=== PATIENT | female | born 1990 | race Caucasian/White ===

== ENCOUNTER 2016-12-05 11:57 | Inpatient (IN) ==
[2016-12-05] MEDS ORDERED: SODIUM CHLORIDE 0.9% 1,000 ML IV STA (12:11)
[2016-12-05] MEDS ORDERED: ZIPRASIDONE 20 MG/1 ML VIAL IM ONE ×2 (12:16→13:12)
[2016-12-05] MEDS ORDERED: ZIPRASIDONE 20 MG/1 ML VIAL IM STA ×2 (12:16→13:13)
[2016-12-05 12:27] LABS: Basophils % 0.3 % (0.0-0.8); Eosinophils % 0.3 % (0.00-10.9); Hemoglobin 13.5 GM/DL (12.0-16.0); Immature Granulocytes % 0.8 %; Immature Granulocytes Absolute 0.07 #; Lymphocytes # 2.6 10*3/uL (1.4-4.0); Lymphocytes % 27.7 % (21.3-54.2); Mean Corpuscular HGB Conc 33.8 GM/DL (32-36); Mean Corpuscular Hemoglobin 27 PG (27-34); Mean Corpuscular Volume 81.1 FL (87-102); Mean Platelet Volume 10.5 FL (9.6-12.0); Monocytes # 0.6 10*3/uL (0.11-0.8); Monocytes % 6.9 % (1.7-12.7); Neutrophils # 5.9 10*3/uL (1.4-7.4); Platelet Count 364 T/CUMM (130-400); Red Blood Count 4.93 MC/CUMM (3.8-5.5); Red Cell Distribution Width 13.2 % (9.3-17.3); White Blood Count 9.2 T/CUMM (4-12)
[2016-12-05 12:51] LABS: Barbiturates Screen,Urine Negative (Negative); Benzodiazepines Screen,Urine Negative (Negative); Cannabinoid Screen,Urine Positive (Negative); Opiate Screen,Urine Negative (Negative); Phencyclidine Screen,Urine Negative (Negative)
[2016-12-05 12:54] LABS: Alanine Aminotransferase 21 U/L (13-56); Albumin 4.3 G/DL (3.4-5.0); Alkaline Phosphatase 90 U/L (45-117); Aspartate Amino Transferase 26 U/L (0-37); Blood Urea Nitrogen 19 MG/DL (7-18); Calcium 9.7 MG/DL (8.5-10.1); Glucose 102 MG/DL (74-106); Osmolality,Calculated 271.1 MOS/KG (273-304); Potassium 3.4 MMOL/L (3.5-5.1); Sodium 135 MMOL/L (136-145); Total Protein 8.8 G/DL (6.4-8.3)
--- NOTE | 2016-12-05 12:54 | Emergency Department Note ---
Pradeep Lee Brooke, am scribing for, and in the presence of, Armin Malave MD 12:19 . Frieda Lee James D, MD, personally performed the services described in this documentation, ascribed by Mona Fernández in my presence, and it is both accurate and complete 253 . Arrival - Arrival Chief Complaint: Psychiatric ED Nursing Triage Note: C/O BEING FOUND ON THE GROUND, SOMEONE CALLED [employer] AND SHE VERBALIZED TO THE [employer] THAT SHE WANTED TO KILL HERSELF, PATIENT STATES SHE HAS BEEN USING COCAINE TODAY , STATES SHE SNORTED , PATIENT VERBALIZED THAT SHE IS GOING TO [facility] IF SHE GETS MAD, " I AM HOMICIDIAL , I AM SUICIDIAL " , PATIENT STATES SHE IS SCHIZOPHRENIC BUT HAS NOT BEEN TAKING HER MEDICATIONS Mode of Arrival: Stretcher Limitations: Altered Mental Status Source: Patient, EMS, Police, RN Notes Reviewed Time Seen by Provider: 12/05/16 12:11 - History of Present Illness HPI Narrative: Patient is a 26 year old female who was brought into the ED by EMS after being found on the ground. EMS reports that [employer] was called and Patient stated that she wanted to kill herself. Patient is a poor historian. She says she came to the ED because "I was scared I was going to of starvation." Patient says she has been doing cocaine and possibly meth. She denies any alcohol use today or yesterday. Patient has a PMHx of past suicide attempt, bipolar disorder, substance abuse, and schizophrenia. She says she has not been taking her schizophrenia medication. Date of Last Menstrual Period: NOW Allergies/Adverse Reactions: Allergies Allergy/AdvReac Type Severity Reaction Status Date / Time haloperidol [From Haldol] AdvReac Intermediate Joint Pain Verified 08/02/16 12: 48 Home Medications: Home Medications Medication Instructions Recorded Confirmed Type Ferrous Sulfate Tab [Feosol 325 mg PO TID #90 tablet 08/02/16 Rx Original Tab] Fluoxetine HCl [Prozac] 40 mg PO DAILY 08/02/16 08/02/16 History Promethazine Tab [Phenergan Tab] 12.5 mg PO Q6H PRN #14 tablet 08/02/16 Rx Ziprasidone Cap [Geodon Cap] 20 mg PO BID 08/02/16 08/02/16 History traZODone [Desyrel] 50 mg PO BEDTIME 08/02/16 08/02/16 History Review of System - Review of System ROS unobtainable: due to mental status - Review of System Constitutional: Absent: fever Respiratory: Absent: respiratory distress Psychiatric: Present: suicidal thoughts Medical,Surgical,& Family Hx - Medical History Psychological: History of: Bipolar Disorder, Previous Suicide Attempt, Psychiatric/Substance Abuse Tx, Schizophrenia - Social History Smoking Status: Smoker, status unknown Frequency of Alcohol Use: Unknown Type of Drug Use: Cocaine, Marijuana, Methamphetamine, Intravenous Drug Use Exam Vital Signs: Vital Signs Temperature 97.7 F 12/05/16 12:36 Pulse Rate 84 12/05/16 12:36 Respiratory Rate 22 12/05/16 12:36 Blood Pressure 121/77 12/05/16 12:36 O2 Sat by Pulse Oximetry 100 12/05/16 12:35 GENERAL: This is a disheveled and agitated white female, smells of stale urine, in no apparent distress. VITAL SIGNS: Reviewed HEENT: Head is atraumatic and normocephalic. Pupils are equal round react to light. Extraocular movements are intact. Oropharynx is benign with moist mucous membranes. NECK: Neck is soft and supple without tenderness. There are no masses. There is no lymphadenopathy. LUNGS: Lungs are clear to auscultation. Chest rises symmetrically. There is no chest wall tenderness. CV: Heart is regular rate and rhythm without murmurs rubs or gallops. ABDOMEN: Abdomen is soft, nontender to palpation. There are no abdominal abnormal masses palpated. There is no organomegaly. Bowel sounds are present and active. SKIN: Skin is warm and dry. No rash. EXTREMITIES: Patient has full range of motion without tenderness. There is no pedal edema. NEUROLOGIC: Awake alert and oriented 4. Cranial nerves II through XII are grossly intact. Motor is 5 over 5 in all extremities bilaterally. Deep tendon reflexes are 2+ and bilaterally equal. Psych: Agitated, insight is poor. Positive homicidal ideations, positive suicidal ideations. Course Course Narrative: [facility] psychiatric evaluation requested. [facility] There are no beds available at [facility] for psychiatric patients at this time. - Consultations Consultation #1: Discussed with hospitalist. Patient will be admitted to their service. Time: 13:35 Results - Labs CBC & BMP: 12/05/16 12:12 05/29/17 12:12 Lab Results: I have reviewed the patients labs Labs: Laboratory Tests 12/05/16 12/05/16 12:12 12:20 Urine Opiates Screen Negative Ur Barbiturates Screen Negative Ur Phencyclidine Scrn Negative U Amphetamine/Methamph Positive H U Benzodiazepines Scrn Negative U Cocaine Metab Screen Positive H U Cannabinoids Screen Positive H Serum Alcohol < 15 L Disposition Clinical Impression: Schizophrenia, Noncompliance with medication regimen, Cocaine abuse, Agitation , Methamphetamine abuse, Marijuana abuse, Homicidal ideation, Suicidal ideations Case discussed with: patient Disposition: Still a Patient Condition: Guarded Time of Disposition: 13:35
--- NOTE | 2016-12-05 14:06 | Hospitalist History & Physical ---
Assessment and Plan (1) Polysubstance abuse Problem details: urine positive for benzos and marijuana Status: Chronic Assessment and plan: At the time of admission, the patient was positive for cannibus, amphetamines, and cocaine. These factors certainly complicate her underlying psychiatric illness. I am not sure if there she has ingested any other unknown substances; however we will monitor in ICU with 1:1 observation. Current Visit: No (2) Suicidal ideations Status: Acute Assessment and plan: Both suicidal and homicidal ideation verbalized at the time of admission. She is unable to be transferred to inpatient psych at this time. We will place on suicide observation in critical care. We will follow up with case management/ social secretary in the AM regarding placement. Current Visit: Yes History of Present Illness Chief complaint: suicidal/homicidal ideation History of present illness: This is very poor and unfortunate 26 year old female patient that was brought to the ED at [facility] by [place] [employer] for evaluation. Apparently, she was found sitting on the side of the road. The police stopped to check on her and at that time voiced intent to commit suicide. she was brought to the ED further evaluation. At the time of presentation, the patient was extremely agitated, disoriented, and combative. When attempting to obtain a medical history; the patient reports a history of schizophrenia; however she reports medication non-compliance. In addition, she reports a past suicide attempt, bipolar disease, and polysubstance abuse. Labs were obtained which revealed mild hypokalemia with a potassium of 3.4 and mild hyponatremia with a sodium of 135. Urine drug screen was performed with positive findings of cocaine, methamphetamines/amphetamines, and cannibus. During the ED encounter, several inpatient psychiatric units were contacted; in which no availability was noted. After brief discussion with both and Dr. Jackson, the patient will be admitted to the hospitalist service for continuation of care. Home Medications Medication Instructions Recorded Confirmed Type Ferrous Sulfate Tab [Feosol 325 mg PO TID #90 tablet 08/02/16 Rx Original Tab] Fluoxetine HCl [Prozac] 40 mg PO DAILY 08/02/16 08/02/16 History Promethazine Tab [Phenergan Tab] 12.5 mg PO Q6H PRN #14 tablet 08/02/16 Rx Ziprasidone Cap [Geodon Cap] 20 mg PO BID 08/02/16 08/02/16 History traZODone [Desyrel] 50 mg PO BEDTIME 08/02/16 08/02/16 History Allergies Allergy/AdvReac Type Severity Reaction Status Date / Time haloperidol [From Haldol] AdvReac Intermediate Joint Pain Verified 08/02/16 12: 48 Medical,Surgical,& Family Hx - Medical History Psychological: History of: Bipolar Disorder, Previous Suicide Attempt, Psychiatric/Substance Abuse Tx, Schizophrenia - Social History Smoking Status: Smoker, status unknown Frequency of Alcohol Use: Unknown Type of Drug Use: Cocaine, Marijuana, Methamphetamine, Intravenous Drug Use ROS unobtainable: due to mental status Exam - Constitutional Vitals: Period Temp Pulse Resp BP Sys/Carbajal Pulse Ox Last 24 Hr 97.7 F-98.0 F 74-84 16-22 121-121/77-81 98-100 General appearance: disheveled, other (dirty; unkempt) - Head Head exam: Present: normal inspection, normocephalic, atraumatic - Eye Eye exam: Present: EOMI. Absent: conjunctival injection, nystagmus Pupils: Present: SAMSON, normal accommodation - ENT ENT exam: Present: normal exam, normal external ear exam, normal oropharynx - Neck Neck exam: Present: normal inspection. Absent: lymphadenopathy, meningismus, tenderness, thyromegaly - Respiratory Respiratory exam: Present: clear to auscultation bilaterally - Cardiovascular Cardiovascular exam: Present: regular rate and rhythm - GI/Abdominal GI/Abdominal exam: Present: normal bowel sounds, soft - Extremities Exam Extremities exam: Present: normal inspection, normal capillary refill, full ROM. Absent: edema - Back Exam Back exam: Present: normal inspection - Neurological Exam Neurological exam: Present: alert, altered, other - Psychiatric Psychiatric exam: Present: agitated, anxious, homicidal ideation, suicidal ideation (bizzare and animated) - Skin Skin exam: Present: normal color, warm, dry Results - Labs CBC & BMP: 12/05/16 12:12 12/05/16 12:12 Lab Results: I have reviewed the past 24 hour labs
--- NOTE | 2016-12-05 14:26 | CT Report ---
Referring physician: Armin Malave Exam: CT brain without contrast Date: 12/05/2016 Comparison: 07/31/2016 Reason: Alteration of consciousness Technique: Axial images of the head were obtained without the use of contrast. Total DLP was 1088.90 mGy*cm. Findings: No hydrocephalus or midline shift is present. There is no evidence of an acute infarction, recent intracranial hemorrhage or abnormal mass effect. The osseous structures appear intact. The mastoid air cells and visualized paranasal sinuses are clear. Impression: No acute intracranial abnormality is identified. The CT exam was performed using one or more of the following dose reduction techniques: Automated exposure control and adjustment of the mA and/or kV according to patient size. PROCEDURE INTERPRETED AT [facility] DEPARTMENT OF RADIOLOGY Final Report Signed by: Dr. Stacie Pompa
--- NOTE | 2016-12-05 14:34 | XRay Report ---
Portable chest Date: 12/05/2016 Clinical history: Shortness of breath Comparison: 10/25/2016 Technique: Portable AP sitting chest Findings: The heart is normal in size. The lungs are clear but hyperexpanded. Stable mediastinum and osseous structures. Impression: Hyperexpanded lungs which can be seen with reactive airway disease or viral illness. PROCEDURE INTERPRETED AT [facility] DEPARTMENT OF RADIOLOGY Final Report Signed by: Dr. Stacie Pompa
[2016-12-05] MEDS ORDERED: ENOXAPARIN 40 MG/0.4 ML SYRINGE SUBCUT SCH (15:00)
[2016-12-05] MEDS ORDERED: THIAMINE 200 MG/2 ML VIAL IV SCH (15:00)
[2016-12-05] MEDS ORDERED: MULTIVITAMIN INJ 10 ML in SODIUM CHLORIDE 0.45% 1,000 ML IV SCH (15:00)
[2016-12-05] MEDS ORDERED: DEXT 5% NACL 0.9% KCL 20 MEQ 20 MEQ/1,000 ML BAG IV SCH (15:00)
[2016-12-05] MEDS: LORazepam 2 MG/1 ML VIAL IV PRN ×2 (15:09→23:31)
[2016-12-05] MEDS ORDERED: SODIUM CHLORIDE 0.9% 1,000 ML IV ONE ×2 (15:20→21:39)
[2016-12-05] MEDS ORDERED: DEXTROSE 5% NACL 0.45% 1,000 ML IV SCH (15:30)
[2016-12-05 16:31] LABS: Ammonia 44 UMOL/L (11-32)
[2016-12-05] MEDS: MULTIVITAMIN IV SCH (16:40)
[2016-12-05] MEDS: THIAMINE IV SCH (16:40)
[2016-12-05] MEDS: SODIUM CHLORIDE 0.45% IV SCH (16:40)
[2016-12-05] MEDS: DEXTROSE IV SCH (16:40)
[2016-12-05] MEDS: POTASSIUM CHLORIDE RIDER 10 MEQ in PREMIX 1 EACH IV PRN ×3 (16:41→18:45)
[2016-12-05] MEDS ORDERED: traZODone 50 MG TABLET PO SCH (21:00)
[2016-12-05] MEDS: ZIPRASIDONE 20 MG CAPSULE PO SCH (22:34)
[2016-12-06] MEDS: DEXTROSE IV SCH ×2 (00:50→08:01)
[2016-12-06] MEDS: MULTIVITAMIN IV SCH ×2 (00:50→08:01)
[2016-12-06] MEDS: THIAMINE IV SCH ×2 (00:50→08:01)
[2016-12-06] MEDS: SODIUM CHLORIDE 0.45% IV SCH ×2 (00:50→08:01)
[2016-12-06] MEDS: LORazepam 2 MG/1 ML VIAL IV PRN ×2 (02:33→06:38)
[2016-12-06 05:11] LABS: Basophils # 0.1 10*3/uL (0.0-0.2); Basophils % 0.6 % (0.0-0.8); Eosinophils # 0.1 10*3/uL (0.0-0.87); Hematocrit 35.4 VOL% (35.7-47.0); Hemoglobin 11.6 GM/DL (12.0-16.0); Immature Granulocytes % 0.2 %; Immature Granulocytes Absolute 0.02 #; Lymphocytes % 34.1 % (21.3-54.2); Mean Corpuscular HGB Conc 32.8 GM/DL (32-36); Mean Corpuscular Hemoglobin 27 PG (27-34); Mean Corpuscular Volume 82.1 FL (87-102); Mean Platelet Volume 10.5 FL (9.6-12.0); Monocytes # 0.7 10*3/uL (0.11-0.8); Monocytes % 8.4 % (1.7-12.7); Neutrophils # 4.9 10*3/uL (1.4-7.4); Neutrophils % 55.7 % (38.7-73.9); Platelet Count 286 T/CUMM (130-400); Red Blood Count 4.31 MC/CUMM (3.8-5.5); Red Cell Distribution Width 13.4 % (9.3-17.3); White Blood Count 8.8 T/CUMM (4-12)
[2016-12-06 05:42] LABS: Albumin 3.2 G/DL (3.4-5.0); Bilirubin,Total 0.5 MG/DL (0.2-1.0); Calcium 8.6 MG/DL (8.5-10.1); Free T4 (Free Thyroxine) 1.34 NG/DL (0.76-1.46); Osmolality,Calculated 274.7 MOS/KG (273-304); Potassium 3.9 MMOL/L (3.5-5.1); Thyroid Stimulating Hormone 0.751 uIU/ml (0.358-3.74); Total Protein 6.8 G/DL (6.4-8.3)
[2016-12-06] MEDS: POTASSIUM CHLORIDE RIDER 10 MEQ in PREMIX 1 EACH IV PRN ×2 (05:52→06:58)
[2016-12-06] MEDS: ZIPRASIDONE 20 MG CAPSULE PO SCH (09:17)
--- NOTE | 2016-12-06 09:26 | Hospitalist Progress Note ---
Assessment and Plan - Time spent with patient Time spent with patient: Less than 30 minutes (1) Agitation Status: Acute Assessment and plan: Ms. Ashley is a 26-year-old white female with history of bipolar disorder, schizophrenia, polysubstance abuse and suicidal ideation with multiple frequent hospitalizations for the same reasons. And patient transfer to drug and alcohol abuse center was attempted in the ED but there were no beds for placement. She was admitted by the hospitalist service with dehydration and suicidal and homicidal ideation. Her drug screen was positive for cocaine, methamphetamines/amphetamines, and cannabis. Dr. Moody will see and examined patient and further recommendations to follow. 12/06/2016 patient's labs are relatively normal this morning. She awakens easily but is somewhat disoriented in time. She has some unusual facial tics and she is rambling about how nobody will help her and worried about her children. She had a full tray approximately 30 minutes before my visit but she did not remember eating it. Patient has been noncompliant with her psychiatric medications with frequent polysubstance abuse. batch plant supervisor have been consulted for evaluation by psychiatric facility. Patient has Ativan trazodone and Geodon to help with her outbursts. She is also on a banana bag for withdrawal symptoms. Current Visit: No (2) History of methamphetamine abuse Status: Acute Current Visit: No (3) Depression Status: Chronic Current Visit: No (4) Polysubstance abuse Problem details: urine positive for benzos and marijuana Status: Chronic Current Visit: No (5) Schizophrenia Status: Acute Current Visit: Yes (6) Noncompliance with medication regimen Status: Acute Current Visit: Yes (7) Cocaine abuse Status: Acute Current Visit: Yes (8) Methamphetamine abuse Status: Acute Current Visit: Yes (9) Marijuana abuse Status: Acute Current Visit: Yes (10) Homicidal ideation Status: Acute Current Visit: Yes (11) Suicidal ideations Status: Acute Current Visit: Yes Hospitalist: Subjective Interval history: Patient states she feels okay this morning. She does not admit to having any suicidal or homicidal ideation. She states she just has problems with drugs and alcohol and needs help. She states her family will not help her. She is worried about her 3 young children who are staying with their father. She she states that [facility] does not help her and they should be shut down. She admits to not taking her medicines on her own in approximately 2 years. She had all of her breakfast but does not remember doing it stating that they never fed her this morning. Her sitter in the room states that they brought her a tray and she ate at all. Exam - Constitutional Vitals: Period Temp Pulse Resp BP Sys/Carbajal Pulse Ox Last 24 Hr 97.7 F-98.7 F 60-100 13-24 91-134/47-84 96-100 Exam: 26-year-old white female, no acute distress, alert but somewhat disoriented She has some unusual facial tics Chest clear CV regular rate and rhythm Abdomen soft and nontender Extremities no edema Results - Labs CBC & BMP: 12/06/16 04:22 12/06/16 04:22 Lab Results: I have reviewed the past 24 hour labs
--- NOTE | 2016-12-06 10:35 | Discharge Summary ---
Hospital Course - Hospital Course Hospital Course: Ms Ashley presented with psychosis due to Bipolar disorder. She is suicidal. She has been stable and will be discharged to psych facility today so that she can get help with her mental health issues. She also has substance abuse issues. Diagnosis - Discharge Diagnosis (1) Polysubstance abuse Status: Chronic (2) Schizophrenia Status: Acute (3) Noncompliance with medication regimen Status: Acute (4) Suicidal ideations Status: Acute Discharge Plan - Discharge Data Disposition: Disch/Xfer to Psych Hos Condition at Discharge: Stable Discharge Diet: regular diet Activity: resume usual activities as tolerated - Discharge Medications New Pedi Multivit 22/Vit D3/Vit K [Mvw Complete Formul D3000 Chew] 1 each PO DAILY #60 tab.chew Continue Ziprasidone Cap [Geodon Cap] 20 mg PO BID Fluoxetine HCl [Prozac] 40 mg PO DAILY Ferrous Sulfate Tab [Feosol Original Tab] 325 mg PO TID #90 tablet Promethazine Tab [Phenergan Tab] 12.5 mg PO Q6H PRN #14 tablet PRN Reason: Nausea/Vomiting traZODone [Desyrel] 50 mg PO BEDTIME - Follow Up or Referral - Forms/Instructions Exam - Constitutional Vitals: Period Temp Pulse Resp BP Sys/Carbajal Pulse Ox Last 24 Hr 97.7 F-98.7 F 60-100 13-24 91-134/47-84 96-100 General appearance: normal weight, no acute distress - Head Head exam: Present: normocephalic, atraumatic - Eye Eye exam: Present: EOMI. Absent: scleral icterus - Respiratory Respiratory exam: Present: clear to auscultation bilaterally - Cardiovascular Cardiovascular exam: Present: regular rate and rhythm - GI/Abdominal GI/Abdominal exam: Present: normal bowel sounds, soft. Absent: tenderness - Extremities Exam Extremities exam: Absent: edema - Neurological Exam Neurological exam: Present: alert, oriented X3. Absent: motor sensory deficit - Psychiatric Psychiatric exam: Present: agitated, manic, suicidal ideation - Skin Skin exam: Present: warm, dry Discharge Results Procedures and tests throughout hospitalization: Pending Orders 12/05/16 16:41 MRSA Surveillence, Inf Control Routine Labs on day of discharge: Labs from last 24 hours 12/06/16 12/06/16 12/05/16 04:22 04:22 12:20 WBC 8.8 RBC 4.31 Hgb 11.6 L Hct 35.4 L MCV 82.1 L MCH 27 MCHC 32.8 RDW 13.4 Plt Count 286 D MPV 10.5 Neut % (Auto) 55.7 Lymph % (Auto) 34.1 [place] % (Auto) 8.4 Eos % (Auto) 1.0 Baso % (Auto) 0.6 Neut # (Auto) 4.9 Lymph # (Auto) 3.0 [place] # (Auto) 0.7 Eos # (Auto) 0.1 Baso # (Auto) 0.1 Immature Gran % 0.2 Nucleated RBC % 0.0 Immature Gran # 0.02 Nucleated RBCs # 0.00 Sodium 138 Potassium 3.9 Chloride 105 Carbon Dioxide 23 Anion Gap 13.9 BUN 11 Creatinine 0.60 GFR Calculation 121 BUN/Creatinine Ratio 18.00 Glucose 109 H Calculated Osmolality 274.7 Calcium 8.6 Magnesium 2.0 Total Bilirubin 0.50 AST 21 ALT 20 Alkaline Phosphatase 71 Ammonia Total Protein 6.8 Albumin 3.2 L Globulin 3.6 H Albumin/Globulin Ratio 0.8 L Free T4 1.34 TSH 3rd Generation 0.751 Urine Test Urine Opiates Screen Negative Ur Barbiturates Screen Negative Ur Phencyclidine Scrn Negative U Amphetamine/Methamph Positive H U Benzodiazepines Scrn Negative U Cocaine Metab Screen Positive H U Cannabinoids Screen Positive H Serum Alcohol 12/05/16 12/05/16 12/05/16 12:20 12:12 12:12 WBC 9.2 RBC 4.93 Hgb 13.5 Hct 40.0 MCV 81.1 L MCH 27 MCHC 33.8 RDW 13.2 Plt Count 364 MPV 10.5 Neut % (Auto) 64.0 Lymph % (Auto) 27.7 [place] % (Auto) 6.9 Eos % (Auto) 0.3 Baso % (Auto) 0.3 Neut # (Auto) 5.9 Lymph # (Auto) 2.6 [place] # (Auto) 0.6 Eos # (Auto) 0.0 Baso # (Auto) 0.0 Immature Gran % 0.8 Nucleated RBC % 0.0 Immature Gran # 0.07 Nucleated RBCs # 0.00 Sodium 135 L Potassium 3.4 L Chloride 101 Carbon Dioxide 24 Anion Gap 13.4 BUN 19 H Creatinine 0.90 GFR Calculation 93 BUN/Creatinine Ratio 21.00 H Glucose 102 Calculated Osmolality 271.1 L Calcium 9.7 Magnesium Total Bilirubin 0.60 AST 26 ALT 21 Alkaline Phosphatase 90 Ammonia 44 H Total Protein 8.8 H Albumin 4.3 Globulin 4.5 H Albumin/Globulin Ratio 0.9 L Free T4 TSH 3rd Generation Urine Test Negative Urine Opiates Screen Ur Barbiturates Screen Ur Phencyclidine Scrn U Amphetamine/Methamph U Benzodiazepines Scrn U Cocaine Metab Screen U Cannabinoids Screen Serum Alcohol < 15 L DS: Provider Date of admission: 12/05/16 14:00 Primary care physician: . No PCP Attending physician on admission: Zain Ashley Consults: 12/05/16 14:49 Consult to Case Mgmt/Social Srvs [CONS] Routine Reason for Case Mgmt/Social Srvs: Rehab Consult Comment: Placement/Psych facility Consult to Physician [CONS] Routine Comment: Consulting Provider: Discharging clinician: Kely Moody MD
[2016-12-06 10:56] VITALS: BP 118/60
--- NOTE | 2016-12-08 13:32 | Physician Query Form ---
CLICK EDIT DOCUMENT TO SELECT QUERY ANSWER --> OK --> SIGN Rakel Hanley RN, CCDS Certified Clinical Farmworker [employer] W) [phone] (f) [phone] [email or web address] PROVIDERS: Make your selection(s) from the choices in EACH section by typing an "x" and enter comments in the comment section. Please use your independent medical judgment in providing your response. This request does not imply that any particular answer is desired or expected. CLINICAL INDICATORS: (Providers should not edit this section) Patient admitted with bipolar disorder and polysubstance abuse with suicidal and homicidal ideations with agitation and psychosis. "At the time of admission , the patient was positive for cannibis, amphetamines, and cocaine. These factors certainly complicate her underlying psychiatric illness." Based on the above, could you clarify the appropriate diagnosis, if significant , that supports the above abnormalities and additional evaluation, monitoring, and/or treatment rendered: ( ) Bipolar exacerbation due to cocaine and amphetamine/methamphetamine use ( x) Bipolar exacerbation unrelated to illicit drug use ( ) Other, please specify: ( ) Clinically unable to determine COMMENTS: PLEASE ALSO DOCUMENT RESPONSE IN PROGRESS NOTES AND/OR DISCHARGE SUMMARY Use of terms such as suspected, likely, or probable (associated with a specific diagnosis that is being evaluated, monitored, or treated as if it exists) are acceptable and can be restated in the discharge summary if not ruled out. MTDD
--- NOTE | 2016-12-09 10:23 | Physician Query Form ---
CLICK EDIT DOCUMENT TO SELECT QUERY ANSWER --> OK --> SIGN Rakel Hanley RN, CCDS Certified Clinical Roll Grinder Operator W) [phone] (f) [phone] [email or web address] PROVIDERS: Make your selection(s) from the choices in EACH section by typing an "x" and enter comments in the comment section. Please use your independent medical judgment in providing your response. This request does not imply that any particular answer is desired or expected. CLINICAL INDICATORS: (Providers should not edit this section) Behavior described as "agitated, anxious, homicidal ideation, suicidal ideation (bizzare and animated)", discharged to psych facility for help with her mental health issues. Based on bipolar disorder unrelated to illicit drug use, can you please clarify the type current episode? Based on the above, could you clarify the appropriate diagnosis, if significant , that supports the above abnormalities and additional evaluation, monitoring, and/or treatment rendered: ( ) Depressed episode (x) Manic episode ( ) Mixed episode ( ) Hypomanic episode ( ) Other, please specify: ( ) Clinically unable to determine COMMENTS: PLEASE ALSO DOCUMENT RESPONSE IN PROGRESS NOTES AND/OR DISCHARGE SUMMARY Use of terms such as suspected, likely, or probable (associated with a specific diagnosis that is being evaluated, monitored, or treated as if it exists) are acceptable and can be restated in the discharge summary if not ruled out. MTDD
== END 2016-12-06 12:20 | DRG 753 ==
LOC: N.ED 11:57 → N.EDINP 14:00 → SUATTDRO 14:00 → N.EDINP 14:20 → N.CC 14:33
PROVIDERS: ADMIT Hospitalist; ATTEND Internal Medicine

== ENCOUNTER 2017-08-29 20:43 | Observation (INO) ==
[2017-08-29] MEDS ORDERED: ZIPRASIDONE 20 MG/1 ML VIAL IM ONE ×2 (21:01→21:09)
[2017-08-29] MEDS ORDERED: LORazepam 2 MG/1 ML VIAL ONE (21:02)
[2017-08-29] MEDS ORDERED: SODIUM CHLORIDE 0.9% 1,000 ML IV STA (21:09)
[2017-08-29] MEDS ORDERED: LORazepam 2 MG/1 ML VIAL IM STA (21:09)
[2017-08-29 21:46] LABS: Basophils % 0.4 % (0.0-0.8); Eosinophils % 0.6 % (0.00-10.9); Hematocrit 34.9 VOL% (35.7-47.0); Hemoglobin 11.6 GM/DL (12.0-16.0); Immature Granulocytes % 0.3 %; Immature Granulocytes Absolute 0.02 #; Lymphocytes # 2.2 10*3/uL (1.4-4.0); Lymphocytes % 31.1 % (21.3-54.2); Mean Corpuscular HGB Conc 33.2 GM/DL (32-36); Mean Corpuscular Hemoglobin 29 PG (27-34); Mean Corpuscular Volume 87.7 FL (87-102); Mean Platelet Volume 10.6 FL (9.6-12.0); Monocytes # 0.7 10*3/uL (0.11-0.8); Monocytes % 9.1 % (1.7-12.7); Neutrophils # 4.2 10*3/uL (1.4-7.4); Neutrophils % 58.5 % (38.7-73.9); Platelet Count 221 T/CUMM (130-400); Red Blood Count 3.98 MC/CUMM (3.8-5.5); Red Cell Distribution Width 12.5 % (9.3-17.3); White Blood Count 7.1 T/CUMM (4-12)
[2017-08-29 22:13] LABS: Acetaminophen < 2.0 UG/ML (10-30); Salicylate 3.9 MG/DL (2.8-20)
[2017-08-29 22:16] LABS: Alanine Aminotransferase 24 U/L (13-56); Alkaline Phosphatase 56 U/L (45-117); Aspartate Amino Transferase 12 U/L (0-37); Blood Urea Nitrogen 12 MG/DL (7-18); Calcium 8.4 MG/DL (8.5-10.1); Glucose 88 MG/DL (74-106); Osmolality,Calculated 271.8 MOS/KG (273-304); Sodium 137 MMOL/L (136-145); Total Protein 7.6 G/DL (6.4-8.3)
[2017-08-30 00:38] LABS: Barbiturates Screen,Urine Negative (Negative); Benzodiazepines Screen,Urine Negative (Negative); Cannabinoid Screen,Urine Positive (Negative); Opiate Screen,Urine Negative (Negative); Phencyclidine Screen,Urine Negative (Negative)
[2017-08-30] MEDS ORDERED: POTASSIUM BICARB EFFERVESCENT 25 MEQ TABLET PO ONE ×2 (00:46→07:38)
[2017-08-30] MEDS ORDERED: ZIPRASIDONE 20 MG/1 ML VIAL IM PRN (07:30)
[2017-08-30] MEDS ORDERED: POTASSIUM CHLORIDE 20 MEQ PACK ONE (07:32)
[2017-08-30 08:24] VITALS: BP 113/68
[2017-08-30] MEDS ORDERED: PROMETHAZINE 25 MG/1 ML VIAL IM PRN (08:58)
[2017-08-30] MEDS ORDERED: ACETAMINOPHEN 325 MG TABLET PO PRN (08:58)
[2017-08-30 09:48] LABS: Calcium 9.2 MG/DL (8.5-10.1); Osmolality,Calculated 272.7 MOS/KG (273-304); Potassium 4.4 MMOL/L (3.5-5.1)
[2017-08-30] MEDS ORDERED: PANTOPRAZOLE 40 MG TABLET PO SCH (10:00)
[2017-08-30] MEDS ORDERED: FERROUS SULFATE 325 MG TABLET PO SCH (10:00)
[2017-08-30] MEDS ORDERED: MULTIVITAMIN (CENTRUM) TABLET PO SCH (10:00)
[2017-08-30] MEDS ORDERED: ZIPRASIDONE 20 MG CAPSULE PO SCH (10:00)
[2017-08-30] MEDS ORDERED: FLUoxetine 20 MG CAPSULE PO SCH (10:00)
[2017-08-30] MEDS ORDERED: traZODone 50 MG TABLET PO SCH (21:00)
[2017-08-30] MEDS ORDERED: ENOXAPARIN 40 MG/0.4 ML SYRINGE SUBCUT SCH (21:00)
== END 2017-08-30 11:03 ==
LOC: EDBD → EDUNIT# → N.ED 20:43 → INTOOBSV 08-30 07:25 → N.EDINP 08-30 07:25 → N.2E 08-30 08:56
PROVIDERS: ADMIT Internal Medicine; ATTEND Internal Medicine

== ENCOUNTER 2020-06-18 22:59 | Observation (INO) ==
[2020-06-18] MEDS ORDERED: SODIUM CHLORIDE 0.9% 1,000 ML IV STA (23:24)
[2020-06-18 23:49] LABS: ABG Base Excess 0.7 MMOL/L (-2.5-2.5); ABG Oxygen Saturation 95.7 % (95-100); ABG PH 7.388 (7.35-7.45); ABG PO2 82.1 MM HG (80-95); ABG TCO2 23.2 MMOL/L (23-27); Allen Test Positive; Pt O2 Delivery Device Room Air
[2020-06-19] LABS: Barbiturates Screen,Urine Negative (Negative); Benzodiazepines Screen,Urine Positive (Negative); Cannabinoid Screen,Urine Positive (Negative); Opiate Screen,Urine Negative (Negative); Phencyclidine Screen,Urine Negative (Negative)
[2020-06-19 00:06] LABS: Basophils # 0.1 10*3/uL (0.0-0.2); Basophils % 0.6 % (0.0-0.8); Eosinophils # 0.1 10*3/uL (0.0-0.87); Eosinophils % 1.2 % (0.00-10.9); Hematocrit 37.1 VOL% (35.7-47.0); Hemoglobin 12.4 GM/DL (12.0-16.0); Immature Granulocytes % 0.2 %; Immature Granulocytes Absolute 0.02 #; Lymphocytes % 32.9 % (21.3-54.2); Mean Corpuscular HGB Conc 33.4 GM/DL (32-36); Mean Corpuscular Volume 86.7 FL (87-102); Mean Platelet Volume 10.3 FL (9.6-12.0); Neutrophils % 59.1 % (38.7-73.9); Platelet Count 303 T/CUMM (130-400); Red Blood Count 4.28 MC/CUMM (3.8-5.5); Red Cell Distribution Width 12.9 % (9.3-17.3)
[2020-06-19 00:18] LABS: Acetaminophen < 2.0 UG/ML (10-30); Salicylate < 2.8 MG/DL (2.8-20)
[2020-06-19 00:20] LABS: Alanine Aminotransferase 50 U/L (13-56); Alkaline Phosphatase 60 U/L (45-117); Aspartate Amino Transferase 31 U/L (0-37); Blood Urea Nitrogen 8 MG/DL (7-18); Calcium 9.1 MG/DL (8.5-10.1); Estimated Glom Filtration Rate 127 ML/MIN; Glucose 75 MG/DL (74-106); Osmolality,Calculated 269.8 MOS/KG (273-304); Total Protein 8.2 G/DL (6.4-8.3)
[2020-06-19 00:26] LABS: Bilirubin,Urine Negative (Negative); Blood, Urine Small mg/dL (Negative); Glucose,Urine (UA) Negative (Negative); Granular Casts,Urine 18 /LPF (0-1); Hyaline Casts,Urine 67 /LPF (0-3); Ketones,Urine 20 mg/dL (Negative); Mucus,Urine Many /LPF (Occasional); Nitrite,Urine Negative (Negative); Protein,Urine 100 MG/DL; RBC,Urine 16 /HPF (0-4); Squamous Epithelial Cell,Urine Occasional /HPF (0-10); Urine Appearance Slightly Hazy (Clear); Urine Color Amber (Yellow); Urine Specific Gravity 1.028 (1.001-1.035); WBC,Urine 13 /HPF (0-6)
[2020-06-19] MEDS ORDERED: ONDANSETRON 4 MG/2 ML VIAL IV PRN (01:23)
[2020-06-19] MEDS ORDERED: GLUCAGON 1 MG VIAL IM PRN (01:23)
[2020-06-19] MEDS ORDERED: DEXTROSE 50% 25 GM/50 ML VIAL IV PRN (01:23)
[2020-06-19] MEDS ORDERED: INFLUENZA VIRUS VACCINE 0.5 ML SYRINGE IM ONE (04:09)
[2020-06-19] MEDS: DEXTROSE 5% NACL 0.9% 1,000 ML IV SCH ×2 (04:30→14:49)
[2020-06-19] MEDS: FOLIC ACID INJ 1 MG in SYRINGE 1 EACH IV SCH (08:48)
[2020-06-19] MEDS: ENOXAPARIN 40 MG/0.4 ML SYRINGE SUBCUT SCH (08:48)
[2020-06-19] MEDS: THIAMINE 200 MG/2 ML VIAL IV SCH (08:48)
[2020-06-19] MEDS: SODIUM CHLORIDE 0.9% 1,000 ML IV SCH ×2 (14:48→19:41)
[2020-06-19] MEDS ORDERED: HALOPERIDOL 5 MG/ML AMP IM PRN (16:44)
[2020-06-19] MEDS: ZIPRASIDONE 20 MG/1 ML VIAL IM PRN (16:55)
[2020-06-20] MEDS: DEXTROSE 5% NACL 0.9% 1,000 ML IV SCH ×3 (07:18→16:32)
[2020-06-20] MEDS: SODIUM CHLORIDE 0.9% 1,000 ML IV SCH ×3 (07:19→18:29)
[2020-06-20] MEDS: ENOXAPARIN 40 MG/0.4 ML SYRINGE SUBCUT SCH (09:59)
[2020-06-20] MEDS: THIAMINE 200 MG/2 ML VIAL IV SCH (09:59)
[2020-06-20] MEDS: FOLIC ACID INJ 1 MG in SYRINGE 1 EACH IV SCH (09:59)
[2020-06-20] MEDS: OLANZapine 5 MG TABLET PO SCH ×2 (10:46→17:44)
[2020-06-20] MEDS: DIVALPROEX 500 MG TABLET PO SCH ×2 (10:46→21:43)
[2020-06-20] MEDS ORDERED: oxyCODONE/ACETAMINOPHEN 5-325 MG TABLET PO PRN (11:04)
[2020-06-20] MEDS: ZIPRASIDONE 20 MG/1 ML VIAL IM PRN (12:10)
[2020-06-21] MEDS: LITHIUM ER 300 MG TABLET PO SCH ×2 (00:31→22:53)
[2020-06-21 05:54] LABS: Basophils % 0.6 % (0.0-0.8); Eosinophils # 0.2 10*3/uL (0.0-0.87); Eosinophils % 2.8 % (0.00-10.9); Hematocrit 36.5 VOL% (35.7-47.0); Hemoglobin 11.9 GM/DL (12.0-16.0); Immature Granulocytes % 0.2 %; Immature Granulocytes Absolute 0.01 #; Lymphocytes # 2.5 10*3/uL (1.4-4.0); Lymphocytes % 39.9 % (21.3-54.2); Mean Corpuscular HGB Conc 32.6 GM/DL (32-36); Mean Corpuscular Volume 88.2 FL (87-102); Mean Platelet Volume 10.8 FL (9.6-12.0); Monocytes % 6.1 % (1.7-12.7); Neutrophils % 50.4 % (38.7-73.9); Platelet Count 272 T/CUMM (130-400); Red Blood Count 4.14 MC/CUMM (3.8-5.5); Red Cell Distribution Width 12.9 % (9.3-17.3); White Blood Count 6.4 T/CUMM (4-12)
[2020-06-21 06:11] LABS: Calcium 8.7 MG/DL (8.5-10.1); Osmolality,Calculated 275.5 MOS/KG (273-304)
[2020-06-21] MEDS: SODIUM CHLORIDE 0.9% 1,000 ML IV SCH ×3 (07:17→18:00)
[2020-06-21] MEDS: DEXTROSE 5% NACL 0.9% 1,000 ML IV SCH ×2 (07:17→13:36)
[2020-06-21] MEDS: DIVALPROEX 500 MG TABLET PO SCH ×2 (11:07→22:53)
[2020-06-21] MEDS: OLANZapine 5 MG TABLET PO SCH ×2 (11:09→18:00)
[2020-06-21] MEDS: THIAMINE 200 MG/2 ML VIAL IV SCH (11:51)
[2020-06-21] MEDS: FOLIC ACID INJ 1 MG in SYRINGE 1 EACH IV SCH (11:51)
[2020-06-21] MEDS: ENOXAPARIN 40 MG/0.4 ML SYRINGE SUBCUT SCH (11:51)
[2020-06-22 05:44] LABS: Basophils % 0.5 % (0.0-0.8); Eosinophils # 0.2 10*3/uL (0.0-0.87); Eosinophils % 3.2 % (0.00-10.9); Hematocrit 38.4 VOL% (35.7-47.0); Hemoglobin 12.6 GM/DL (12.0-16.0); Immature Granulocytes % 0.2 %; Immature Granulocytes Absolute 0.01 #; Lymphocytes # 2.7 10*3/uL (1.4-4.0); Lymphocytes % 40.7 % (21.3-54.2); Mean Corpuscular HGB Conc 32.8 GM/DL (32-36); Mean Corpuscular Volume 87.9 FL (87-102); Mean Platelet Volume 10.7 FL (9.6-12.0); Monocytes % 6.5 % (1.7-12.7); Neutrophils % 48.9 % (38.7-73.9); Platelet Count 279 T/CUMM (130-400); Red Blood Count 4.37 MC/CUMM (3.8-5.5); Red Cell Distribution Width 12.8 % (9.3-17.3); White Blood Count 6.6 T/CUMM (4-12)
[2020-06-22 06:05] LABS: Calcium 9.2 MG/DL (8.5-10.1); Osmolality,Calculated 275.5 MOS/KG (273-304)
[2020-06-22] MEDS: THIAMINE 200 MG/2 ML VIAL IV SCH (09:41)
[2020-06-22] MEDS: DIVALPROEX 500 MG TABLET PO SCH (09:41)
[2020-06-22] MEDS: OLANZapine 5 MG TABLET PO SCH ×2 (09:41→16:20)
[2020-06-22] MEDS: ENOXAPARIN 40 MG/0.4 ML SYRINGE SUBCUT SCH (09:41)
[2020-06-22] MEDS: FOLIC ACID INJ 1 MG in SYRINGE 1 EACH IV SCH (09:42)
[2020-06-22 16:44] VITALS: BP 115/60
== END 2020-06-22 18:00 ==
LOC: EDUNIT# → EDBD → N.ED 22:59 → N.EDINP 22:59 → SUATTDRO 06-19 01:23 → N.EDINP 06-19 03:50 → N.3E 06-19 03:59
PROVIDERS: ADMIT Internal Medicine; ATTEND Internal Medicine